=== PATIENT | male | born 1955 | race Caucasian/White ===

== ENCOUNTER 2018-12-31 20:17 | Inpatient (IN) | payer MEDICAID, OTHER ==
[~2018-12-31] VITALS: Ht 172.7 cm; Wt 74.8 kg
[2018-12-31] MEDS ORDERED: CHLORDIAZEPOXIDE 25MG CAPSULE PO ONE (20:45)
[2018-12-31] MEDS ORDERED: SODIUM CHLORIDE 0.9% 1,000 ML IV ONE (20:53)
[2018-12-31] MEDS ORDERED: LORAZEPAM 2MG/ML CPJ IV STA (20:53)
[2018-12-31] MEDS ORDERED: ONDANSETRON HCL 4MG/2ML INJ IV STA (20:53)
[2018-12-31 21:25] LABS: HEMATOCRIT. 36.6 % (42.0-52.0); HEMOGLOBIN. 12.5 g/dL (14.0-18.0); MEAN CORPUSCULAR HEMOGLOBIN 35.2 pg (28.0-32.0); MEAN CORPUSCULAR VOLUME 103.3 fL (80.0-94.0); MEAN PLATELET VOLUME 8.9 fl (7.4-10.4); PLATELET 83 x1000/uL (130-400); RED BLOOD CELL COUNT 3.54 mill/uL (4.7-6.1); RED CELL DISTRIBUTION WIDTH 14.3 % (11.6-14.6)
[2018-12-31 21:28] LABS: CHLORIDE 104 mEq/L (98-107)
[2018-12-31 21:32] LABS: ETHANOL BLOOD < 10 mg/dL
[2018-12-31 22:13] LABS: CLARITY URINE CLEAR (CLEAR); COLOR URINE ORANGE (YELLOW); KETONES URINE 2+ (NEGATIVE); LEUKOCYTE ESTERASE URINE TRACE (NEGATIVE); NITRITE URINE NEGATIVE (NEGATIVE); OCCULT BLOOD URINE 2+ (NEGATIVE); PROTEIN URINE 2+ (NEGATIVE); SPECIFIC GRAVITY URINE 1.019 (1.005-1.030)
[2018-12-31] MEDS ORDERED: LORAZEPAM 2MG/ML CPJ IV ONE (22:15)
[2018-12-31] MEDS ORDERED: FOLIC ACID 1 MG, THIAMINE HCL 100 MG, MVI, ADULT NO.1 10 ML in DEXTROSE 5% WATER 1,000 ML IV ONE ×4 (22:15)
[2018-12-31] MEDS ORDERED: DIAZEPAM 5 MG TABLET PO ONE (22:15)
[2018-12-31 22:22] LABS: *AMPHETAMINES SCREEN URINE NEGATIVE (NEGATIVE); *BARBITURATES SCREEN URINE NEGATIVE (NEGATIVE); *BENZODIAZEPINES SCREEN URINE NEGATIVE (NEGATIVE); *COCAINE SCREEN URINE NEGATIVE (NEGATIVE); METHADONE URINE SCREEN NEGATIVE (NEGATIVE)
[2018-12-31 22:23] LABS: CANNABINOID URINE SCREEN NEGATIVE (NEGATIVE); OPIATES URINE SCREEN NEGATIVE (NEGATIVE); PHENCYCLIDINE URINE SCREEN NEGATIVE (NEGATIVE)
[2018-12-31 22:27] LABS: PLATELET ESTIMATE DECREASED
[2019-01-01] VITALS (13 sets, daily range): BP systolic 121–164; BP diastolic 73–129
[2019-01-01] MEDS ORDERED: ONDANSETRON HCL 4MG/2ML INJ IV PRN (02:30)
[2019-01-01] MEDS: DEXT 5%/0.45% NACL KCL 20MEQ/L 1,000 ML IV SCH ×3 (04:26→20:43)
[2019-01-01] MEDS: LORAZEPAM 2MG/ML CPJ IV PRN ×2 (07:39→21:58)
[2019-01-01] MEDS ORDERED: CLONIDINE 0.1MG TABLET PO PRN (07:45)
[2019-01-01] MEDS: PANTOPRAZOLE SODIUM 40 MG/VIAL IV SCH (08:25)
[2019-01-01] MEDS: AMLODIPINE 5MG TABLET PO SCH ×2 (08:25→20:43)
[2019-01-01] MEDS: CHLORDIAZEPOXIDE 25MG CAPSULE PO SCH ×2 (13:27→21:58)
[2019-01-01] MEDS: FOLIC ACID 1 MG, THIAMINE HCL 100 MG, MVI, ADULT NO.1 10 ML in DEXTROSE 5% WATER 1,000 ML IV SCH ×4 (13:27)
[2019-01-02] VITALS (12 sets, daily range): BP systolic 97–149; BP diastolic 55–102
[2019-01-02] MEDS: ACETAMINOPHEN 650MG/20.3ML UDC PO PRN (01:57)
[2019-01-02] MEDS: LORAZEPAM 2MG/ML CPJ IV PRN ×3 (01:58→21:53)
[2019-01-02] MEDS: DEXT 5%/0.45% NACL KCL 20MEQ/L 1,000 ML IV SCH ×3 (05:02→21:52)
[2019-01-02] MEDS: CHLORDIAZEPOXIDE 25MG CAPSULE PO SCH ×3 (06:20→21:53)
[2019-01-02 07:35] LABS: HEMATOCRIT. 33.5 % (42.0-52.0); HEMOGLOBIN. 11.8 g/dL (14.0-18.0); MEAN CORPUSCULAR VOLUME 102.6 fL (80.0-94.0); MEAN PLATELET VOLUME 9.6 fl (7.4-10.4); RED BLOOD CELL COUNT 3.27 mill/uL (4.7-6.1); RED CELL DISTRIBUTION WIDTH 13.6 % (11.6-14.6)
[2019-01-02 07:40] LABS: CHLORIDE 104 mEq/L (98-107)
[2019-01-02 08:10] LABS: PLATELET 48 x1000/uL (130-400)
[2019-01-02] MEDS: PANTOPRAZOLE SODIUM 40 MG/VIAL IV SCH (09:11)
[2019-01-02] MEDS: AMLODIPINE 5MG TABLET PO SCH ×2 (09:12→21:53)
[2019-01-02 09:48] LABS: PLATELET ESTIMATE MARKEDLY DECREASED
[2019-01-02] MEDS ORDERED: POTASSIUM CHLORIDE 20MEQ TABLET SR PO NR (11:00)
[2019-01-02 13:15] LABS: HEPATITIS B SURFACE ANTIGEN NEGATIVE
[2019-01-02 13:44] LABS: HEPATITIS A AB IGM NEGATIVE (NEGATIVE)
[2019-01-02] MEDS: FOLIC ACID 1 MG, THIAMINE HCL 100 MG, MVI, ADULT NO.1 10 ML in DEXTROSE 5% WATER 1,000 ML IV SCH ×4 (14:04)
[2019-01-02] MEDS: NEOMY SULF/BACITRAC ZN/POLY OINT 28GM TOP SCH (17:29)
[2019-01-03] VITALS (11 sets, daily range): BP systolic 120–176; BP diastolic 78–114
[2019-01-03] MEDS: LORAZEPAM 2MG/ML CPJ IV PRN ×6 (02:36→21:18)
[2019-01-03] MEDS: DEXT 5%/0.45% NACL KCL 20MEQ/L 1,000 ML IV SCH ×3 (05:00→22:08)
[2019-01-03] MEDS: CHLORDIAZEPOXIDE 25MG CAPSULE PO SCH ×4 (06:42→21:32)
[2019-01-03] MEDS: FOLIC ACID 1 MG, THIAMINE HCL 100 MG, MVI, ADULT NO.1 10 ML in DEXTROSE 5% WATER 1,000 ML IV SCH ×8 (06:54→13:09)
[2019-01-03 08:44] LABS: HEMATOCRIT. 34.6 % (42.0-52.0); HEMOGLOBIN. 11.8 g/dL (14.0-18.0); MEAN CORPUSCULAR HEMOGLOBIN 35.4 pg (28.0-32.0); MEAN CORPUSCULAR VOLUME 103.7 fL (80.0-94.0); MEAN PLATELET VOLUME 10.1 fl (7.4-10.4); PLATELET 65 x1000/uL (130-400); RED BLOOD CELL COUNT 3.34 mill/uL (4.7-6.1); RED CELL DISTRIBUTION WIDTH 13.8 % (11.6-14.6)
[2019-01-03 09:08] LABS: CHLORIDE 105 mEq/L (98-107)
[2019-01-03] MEDS: NEOMY SULF/BACITRAC ZN/POLY OINT 28GM TOP SCH ×2 (09:35→21:19)
[2019-01-03] MEDS: PANTOPRAZOLE SODIUM 40 MG/VIAL IV SCH (09:35)
[2019-01-03] MEDS: AMLODIPINE 5MG TABLET PO SCH (09:35)
[2019-01-03 09:59] LABS: PLATELET ESTIMATE DECREASED
[2019-01-03] MEDS: DILTIAZEM HCL 60MG TABLET PO SCH ×2 (13:08→18:13)
[2019-01-04] VITALS: BP 113/70
[2019-01-04] MEDS: LORAZEPAM 2MG/ML CPJ IV PRN ×4 (01:24→22:20)
[2019-01-04 04:00] VITALS: BP 108/69
[2019-01-04] MEDS: DILTIAZEM HCL 60MG TABLET PO SCH ×5 (06:00→17:26)
[2019-01-04] MEDS: CHLORDIAZEPOXIDE 25MG CAPSULE PO SCH ×3 (06:00→22:20)
[2019-01-04] MEDS: DEXT 5%/0.45% NACL KCL 20MEQ/L 1,000 ML IV SCH ×2 (06:21→22:21)
[2019-01-04 07:26] LABS: HEMATOCRIT. 32.7 % (42.0-52.0); HEMOGLOBIN. 11.2 g/dL (14.0-18.0); MEAN CORPUSCULAR HEMOGLOBIN 35.5 pg (28.0-32.0); MEAN CORPUSCULAR VOLUME 103.2 fL (80.0-94.0); MEAN PLATELET VOLUME 9.9 fl (7.4-10.4); PLATELET 76 x1000/uL (130-400); RED BLOOD CELL COUNT 3.17 mill/uL (4.7-6.1); RED CELL DISTRIBUTION WIDTH 13.9 % (11.6-14.6)
[2019-01-04 07:53] LABS: CHLORIDE 103 mEq/L (98-107)
[2019-01-04 08:00] VITALS: BP 126/85
[2019-01-04] MEDS: NEOMY SULF/BACITRAC ZN/POLY OINT 28GM TOP SCH ×2 (09:10→22:20)
[2019-01-04] MEDS: PANTOPRAZOLE SODIUM 40 MG/VIAL IV SCH (09:10)
[2019-01-04 11:12] LABS: PLATELET ESTIMATE DECREASED
[2019-01-04 12:00] VITALS: BP 110/73
[2019-01-04] MEDS: FOLIC ACID 1 MG, THIAMINE HCL 100 MG, MVI, ADULT NO.1 10 ML in DEXTROSE 5% WATER 1,000 ML IV SCH ×4 (14:00)
[2019-01-04 16:00] VITALS: BP 138/87
[2019-01-04 20:00] VITALS: BP 132/75
[2019-01-05] VITALS: BP 127/64
[2019-01-05 04:00] VITALS: BP 128/56
[2019-01-05] MEDS ORDERED: AMLODIPINE 5MG TABLET PO ONE (06:15)
[2019-01-05] MEDS: CHLORDIAZEPOXIDE 25MG CAPSULE PO SCH ×3 (06:30→22:20)
[2019-01-05] MEDS: LORAZEPAM 2MG/ML CPJ IV PRN ×2 (06:30→12:55)
[2019-01-05] MEDS: DILTIAZEM HCL 60MG TABLET PO SCH ×4 (06:36→19:48)
[2019-01-05] MEDS: DEXT 5%/0.45% NACL KCL 20MEQ/L 1,000 ML IV SCH ×3 (06:36→12:59)
[2019-01-05 08:00] VITALS: BP 117/79
[2019-01-05] MEDS ORDERED: AMLODIPINE 5MG TABLET PO SCH (09:00)
[2019-01-05] MEDS: FAMOTIDINE 20MG/2ML VIAL IV SCH ×2 (09:41→21:00)
[2019-01-05] MEDS: NEOMY SULF/BACITRAC ZN/POLY OINT 28GM TOP SCH ×2 (09:42→21:00)
[2019-01-05 12:00] VITALS: BP 118/84
[2019-01-05] MEDS: FOLIC ACID 1 MG, THIAMINE HCL 100 MG, MVI, ADULT NO.1 10 ML in DEXTROSE 5% WATER 1,000 ML IV SCH ×4 (15:06)
[2019-01-05 16:00] VITALS: BP 125/84
[2019-01-05 20:00] VITALS: BP 127/88
[2019-01-05] MEDS: ACETAMINOPHEN 650MG/20.3ML UDC PO PRN (22:20)
[2019-01-06] VITALS: BP 116/74
[2019-01-06] MEDS: DILTIAZEM HCL 60MG TABLET PO SCH ×5 (01:14→23:58)
[2019-01-06] MEDS: DEXT 5%/0.45% NACL KCL 20MEQ/L 1,000 ML IV SCH ×2 (02:21→09:19)
[2019-01-06 04:00] VITALS: BP 114/76
[2019-01-06] MEDS: CHLORDIAZEPOXIDE 25MG CAPSULE PO SCH ×2 (06:25→21:28)
[2019-01-06] MEDS: LORAZEPAM 2MG/ML CPJ IV PRN ×2 (06:34→11:27)
[2019-01-06 08:00] VITALS: BP 99/70
[2019-01-06] MEDS: FAMOTIDINE 20MG/2ML VIAL IV SCH (09:19)
[2019-01-06] MEDS: NEOMY SULF/BACITRAC ZN/POLY OINT 28GM TOP SCH ×2 (09:20→22:42)
[2019-01-06 12:00] VITALS: BP 107/73
[2019-01-06] MEDS ORDERED: LORAZEPAM 2MG/ML CPJ IV PRN (14:15)
[2019-01-06 16:00] VITALS: BP 106/79
[2019-01-06] MEDS ORDERED: CHLORDIAZEPOXIDE 25MG CAPSULE PO NR (16:15)
[2019-01-06 20:00] VITALS: BP 122/82
[2019-01-07] VITALS: BP 121/85
[2019-01-07] MEDS: LORAZEPAM 1MG TABLET PO PRN ×3 (02:52→20:56)
[2019-01-07 04:00] VITALS: BP_SYST 113; BP_SYST 129; BP_DIAS 65; BP_DIAS 87
[2019-01-07] MEDS: DILTIAZEM HCL 60MG TABLET PO SCH ×3 (05:12→17:54)
[2019-01-07] MEDS: CHLORDIAZEPOXIDE 25MG CAPSULE PO SCH ×3 (05:12→20:57)
[2019-01-07 08:00] VITALS: BP 123/84
[2019-01-07] MEDS: MULTIVITAMINS,THER W-MINERALS TABLET PO SCH (08:32)
[2019-01-07] MEDS: NEOMY SULF/BACITRAC ZN/POLY OINT 28GM TOP SCH ×2 (08:32→20:57)
[2019-01-07] MEDS: THIAMINE HCL 100MG TABLET PO SCH (08:32)
[2019-01-07] MEDS: FOLIC ACID 1MG TABLET PO SCH (08:32)
[2019-01-07 12:00] VITALS: BP 125/83
[2019-01-07 16:00] VITALS: BP 120/85
[2019-01-07 20:00] VITALS: BP 138/90
[2019-01-08] VITALS: BP 130/91
[2019-01-08] MEDS: DILTIAZEM HCL 60MG TABLET PO SCH ×4 (00:10→17:45)
[2019-01-08 04:00] VITALS: BP 122/74
[2019-01-08] MEDS: CHLORDIAZEPOXIDE 25MG CAPSULE PO SCH ×2 (05:26→13:31)
[2019-01-08 08:00] VITALS: BP 119/81
[2019-01-08] MEDS: MULTIVITAMINS,THER W-MINERALS TABLET PO SCH (09:15)
[2019-01-08] MEDS: FOLIC ACID 1MG TABLET PO SCH (09:15)
[2019-01-08] MEDS: THIAMINE HCL 100MG TABLET PO SCH (09:15)
[2019-01-08] MEDS: NEOMY SULF/BACITRAC ZN/POLY OINT 28GM TOP SCH (09:17)
[2019-01-08] MEDS: LORAZEPAM 1MG TABLET PO PRN (09:52)
[2019-01-08 12:00] VITALS: BP 122/81
[2019-01-08 16:00] VITALS: BP 118/76
[2019-01-08 17:15] VITALS: BP 118/76
== END 2019-01-08 18:55 | disposition home health service (06) | DRG 342 ==
LOC: ER 20:41 → EDBEDREQ 23:03 → EDBEDREQTM 23:03 → EDBEDREQ 23:16 → ENRESERV 23:47 → 5EST 23:48 → 5WST 01-03 15:58
PROVIDERS: ADMIT Internal Medicine; ATTEND Internal Medicine
DX: S92.325A Nondisplaced fracture of second metatarsal bone, left foot, initial encounter for closed fracture (principal); G93.41 Metabolic encephalopathy; D69.6 Thrombocytopenia, unspecified; I47.1 Supraventricular tachycardia; G62.1 Alcoholic polyneuropathy; I48.92 Unspecified atrial flutter; K74.60 Unspecified cirrhosis of liver; F10.239 Alcohol dependence with withdrawal, unspecified; D64.9 Anemia, unspecified; B19.20 Unspecified viral hepatitis C without hepatic coma; I10 Essential (primary) hypertension; G40.909 Epilepsy, unspecified, not intractable, without status epilepticus; J44.9 Chronic obstructive pulmonary disease, unspecified; S92.335A Nondisplaced fracture of third metatarsal bone, left foot, initial encounter for closed fracture; S92.345A Nondisplaced fracture of fourth metatarsal bone, left foot, initial encounter for closed fracture; S92.355A Nondisplaced fracture of fifth metatarsal bone, left foot, initial encounter for closed fracture; E87.6 Hypokalemia; F17.210 Nicotine dependence, cigarettes, uncomplicated; M20.10 Hallux valgus (acquired), unspecified foot; M85.80 Other specified disorders of bone density and structure, unspecified site; S01.81XA Laceration without foreign body of other part of head, initial encounter; X58.XXXA Exposure to other specified factors, initial encounter; Y93.89 Activity, other specified; Y92.89 Other specified places as the place of occurrence of the external cause; Z88.5 Allergy status to narcotic agent; Y99.8 Other external cause status
CPT/HCPCS: 36415; 71045; 73110; 73610; 73630; 80048; 80305; 80320; 82140; 83036; 84134; 84443; 84484; 86705; 86709; 86803; 87340; 93005; 93306; 93970; 97162; 99291; A6261; C9113; J2060; J2405; J3411; J3490; J7030; J7070; G0480